=== PATIENT | male | born 1980 | race Caucasian/White ===

== ENCOUNTER 2021-12-14 08:11 | Emergency (ER) | payer BC ==
[~2021-12-14 08:11] MED LIST: IBUPROFEN600 MG PO; LODINE CAP 300300 MG PO; NAPROSYN500 MG PO; SILVADENE CREAM20 GM TOP
== END 2021-12-14 12:45 | disposition home or self-care (01) ==
LOC: ER1 08:11
DX: U07.1 COVID-19 (principal); Z87.891 Personal history of nicotine dependence; G20 Parkinson's disease
CPT/HCPCS: 70450; 99284; U0002

== ENCOUNTER 2022-02-06 00:18 | Emergency (ER) | payer BC ==
[2022-02-06 01:37] LABS: HEMOGLOBIN 14.9 gm/dl (14.0-17.5); RED BLOOD COUNT 4.55 M/UL (4.20-5.50); WHITE BLOOD COUNT 6.8 K/UL (4.5-11.0)
[2022-02-06 01:58] LABS: BUN/CREATININE RATIO 23 (0-10)
[2022-02-06] MEDS ORDERED: PRILOSEC OTC20 MG PO (04:06)
== END 2022-02-06 04:13 | disposition home or self-care (01) ==
LOC: ER1 00:18
PROVIDERS: Physician Assistant
DX: R12 Heartburn (principal); R06.02 Shortness of breath; Z87.891 Personal history of nicotine dependence
CPT/HCPCS: 71045; 80053; 82550; 82553; 83880; 84484; 85025; 85379; 93005; 96374; 99285